=== PATIENT | male | born 1945 | race Caucasian/White ===

== ENCOUNTER 2017-11-25 06:11 | Inpatient (IN) | payer OTHER ==
[2017-11-05 11:27] VITALS: BMI 35.0
--- NOTE | 2017-11-05 12:08 | PAT Medication Instructions ---
Service Date Nov 05, 2017. Current Home Medication List Aspirin (Aspirin 81), 1 TAB PO HS Coenzyme Q10 (Ubidecarenone) (Coq-10), 1 TAB PO QAM Ibuprofen (Ibuprofen), 2 TAB PO QD PRN for Pain [michoacano-jessica], 1 CAP PO QAM Medication Instructions For Your Scheduled Surgery -Check with your surgeon for instructions for: Ibuprofen (Ibuprofen), 2 TAB PO QD PRN for Pain - Hold the following medications 2 weeks prior to surgery: Coenzyme Q10 (Ubidecarenone) (Coq-10), 1 TAB PO QAM [michoacano-jessica], 1 CAP PO QAM - Take the following medications as scheduled the night before surgery: Aspirin (Aspirin 81), 1 TAB PO HS If you have any questions please call us at [phone] or [phone] or [phone]
[2017-11-05 12:55] LABS: PTT PATIENT 26.1 SECONDS (21.0-31.0)
--- NOTE | 2017-11-05 13:07 | DIAGNOSTIC IMAGING REPORT ---
CHEST 2 VIEWS ROUTINE CLINICAL HISTORY: Preoperative evaluation. COMPARISON STUDY: Chest radiograph October 05, 2006. FINDINGS: Mild lung hyperexpansion is noted. There is no pneumothorax or pleural effusion. There is no consolidation or evidence for pulmonary edema. Lateral view demonstrates extensive anterior osteophytosis of the thoracic spine. IMPRESSION: No acute cardiopulmonary findings. Electronically signed by: Cesar Saba M.D. 11/05/2017 1:06 PM Dictated Date/Time: 11/05/2017 1:05 PM
--- NOTE | 2017-11-24 10:56 | HISTORY & PHYSICAL EXAMINATION ---
DATE OF ADMISSION: 11/25/2017 CHIEF COMPLAINT: Left hip pain. HISTORY OF PRESENT ILLNESS: The patient is a 72-year-old gentleman with known osteoarthritis about his bilateral hips, left worse than right. He has pain with activities of daily living including prolonged weightbearing and standing activities. He has difficulty with any kneeling, bending, or squatting activities. Due to ongoing pain and disability, he now desires to proceed with left total hip arthroplasty. PAST MEDICAL HISTORY: Coronary artery disease status post AR in 2009, hypercholesterolemia, obesity, hyperlipidemia. PAST SURGICAL HISTORY: Heart catheterization and stent placement, previous knee replacement. MEDICATIONS: Aspirin 81 mg daily, ibuprofen p.r.n., CoQ 10 once daily, atorvastatin 10 mg daily, lisinopril 5 mg daily, carvedilol 3.125 mg daily. ALLERGIES: No known drug allergies. SOCIAL HISTORY AND REVIEW OF SYSTEMS: Noncontributory. PHYSICAL EXAMINATION: GENERAL: Well-nourished, well-developed elderly male who appears his stated age. HEENT: Normocephalic, atraumatic, extraocular movements intact, oropharynx pink and moist. NECK: Supple without adenopathy. LUNGS: Clear to auscultation bilaterally. HEART: Regular rate and rhythm. ABDOMEN: Soft, nontender, nondistended, obese. EXTREMITIES: The upper extremities are within normal limits. Left hip demonstrates limited range of motion. There is limitation of active and passive internal/external rotation. X-RAYS: X-rays were reviewed. X-rays demonstrate severe osteoarthritis about the left hip with complete loss of the joint space. There is osteophyte formation about the acetabulum and femoral head. ASSESSMENT: Left hip degenerative joint disease. PLAN: Risks versus benefits were discussed, consent was obtained. The patient's primary care physician is Kim Davila PA-C from [place]. His associate media planner is Dr. Whelan from [place]. Will proceed with left total hip arthroplasty as indicated.
[2017-11-25] VITALS (8 sets, daily range): BP systolic 121–155; BP diastolic 63–89; PULSE 59–72; TEMP 36.5–36.9; O2SAT 95–100; Ht 177.8 cm; Wt 111.3 kg
[~2017-11-25] VITALS: Ht 177.8 cm; Wt 111.3 kg
[~2017-11-25 06:11] MED LIST: ACETAMINOPHEN 500 MG TAB PO SCH; ASPI-435 PO; CEFAZOLIN 2000MG IV PUSH 15 ML IV SCH; COEN30CA8 PO; CeleBREX 200 MG CAP PO SCH; DEXAMETHASONE 4 MG TAB PO SCH; FAMOTIDINE 20 MG TAB PO SCH; GABAPENTIN 300 MG CAP PO SCH; IBUP1CAP9 PO; LACTATED RINGER'S 1000ML 1,000 ML IV SCH; METOCLOPRAMIDE HCL 10 MG TAB PO SCH; ROPIVACAINE 5MG/ML 30 ML 150 MG, BUPIVACAINE 0.5% MPF INJ 30 ML, EpINEphrine HCL INJ 0.... INFIL SCH; [UNRECOGNIZED DRUG - CODE] PO
[2017-11-25] MEDS ORDERED: BUPIVACAINE 0.5 % 5 MG/1 ML PF 10ML VIAL ONE (06:35)
[2017-11-25] MEDS ORDERED: MIDAZOLAM HCL 1 MG/ML 2ML VIAL ONE (07:55)
[2017-11-25] MEDS ORDERED: ORTHO JOINT ANESTHETIC ONE (07:56)
[2017-11-25] MEDS ORDERED: BACITRACIN 50000 UNIT VIAL ONE (07:56)
[2017-11-25] MEDS ORDERED: POVIDONE-IODINE OP SOLN 30 ML BTL ONE (07:56)
[2017-11-25] MEDS ORDERED: FENTANYL CITRATE INJ 50 MCG/1 ML 2 ML VIAL ONE (07:57)
[2017-11-25] MEDS ORDERED: PROPOFOL IV EMULSION 10 MG/ML 20 ML VIAL ONE (07:59)
[2017-11-25] MEDS ORDERED: ONDANSETRON INJ 2 MG/ML 2 ML VIAL ONE (07:59)
[2017-11-25] MEDS ORDERED: LIDOCAINE HCL 2% 2 ML VIAL (20MG/ML) ONE (07:59)
--- NOTE | 2017-11-25 08:01 | History & Physical Bridge Note ---
H&P Re-Evaluation Bridge Note: I have examined the patient, reviewed the History & Physical and in the interval since the performance of the History & Physical I have noted the following changes of clinical significance: No changes noted
[2017-11-25] MEDS ORDERED: EpHEDrine SULFATE INJ 50 MG/ML AMP IV PRN (08:45)
[2017-11-25] MEDS ORDERED: ATROPINE SULFATE 0.1 MG/ML 5ML SYR IV PRN (08:45)
[2017-11-25] MEDS ORDERED: PROMETHAZINE HCL INJ 6.25 MG in SODIUM CHLORIDE 0.9% 50ML 50 ML IV PRN (08:45)
[2017-11-25] MEDS ORDERED: ONDANSETRON INJ 2 MG/ML 2 ML VIAL IV PRN ×2 (08:45→10:30)
[2017-11-25] MEDS ORDERED: FENTANYL CITRATE INJ 50 MCG/1 ML 2 ML VIAL IV PRN (08:45)
[2017-11-25] MEDS: TRANEXAMIC ACID INJ 1,000 MG x 2 Bags IV SCH ×4 (08:51→13:18)
[2017-11-25] MEDS ORDERED: EpHEDrine SULFATE 50MG/5ML SYR ONE (09:40)
--- NOTE | 2017-11-25 09:55 | [facility] Post Operative Brief Note ---
Immediate Operative Summary Operative Date November 25, 2017. Pre-Operative Diagnosis Degenerative Joint Disease, Left Hip Post-Operative Diagnosis Degenerative Joint Disease, Left Hip Procedure(s) Performed Left Total Hip Arthroplasty Surgeon Dr. Enrique Morales Smog Technician Surgeon(s) Wyatt Saravia PA-C Estimated Blood Loss 100 ML Findings Consistent with Post-Op Diagnosis Specimens Permanent Solution: A.) Left Femoral Head Anesthesia Type MAC Spinal Regional Complication(s) none Disposition Disposition: Recovery Room / PACU
[2017-11-25] MEDS ORDERED: OXYCODONE HCL IR 5 MG TAB (IMMEDIATE RELEASE) PO PRN (10:30)
[2017-11-25] MEDS ORDERED: MoRPHine SULFATE 4 MG/ML 1 ML CARP\\VIAL IV PRN (10:30)
[2017-11-25] MEDS ORDERED: ALUMINUM/MAGNESIUM/SIMETH (MAALOX MAX) 30 ML UDC PO PRN (10:30)
[2017-11-25] MEDS ORDERED: TAMSULOSIN HCL 0.4 MG CAP PO PRN (10:30)
[2017-11-25] MEDS ORDERED: METOCLOPRAMIDE HCL INJ 5 MG/ML 2 ML VIAL IV PRN (10:30)
[2017-11-25] MEDS ORDERED: ZOLPIDEM TARTRATE 5 MG TAB PO PRN (10:30)
[2017-11-25] MEDS ORDERED: MAGNESIUM HYDROXIDE SUSP 30 ML UDC PO PRN (10:30)
--- NOTE | 2017-11-25 10:55 | DIAGNOSTIC IMAGING REPORT ---
L PELVIS/UNILATERAL HIP 1 VIEW CLINICAL HISTORY: Postoperative evaluation. COMPARISON: None FINDINGS: Alignment of the total left hip arthroplasty is anatomic. There is no fracture or unexpected radiopaque foreign body. Surgical drain is noted. There is an acetabular screw. Severe osteoarthritis of the right hip is noted. IMPRESSION: Expected findings following total left hip arthroplasty. Electronically signed by: Cesar Saba M.D. 11/25/2017 10:53 AM Dictated Date/Time: 11/25/2017 10:53 AM
--- NOTE | 2017-11-25 11:13 | OPERATIVE REPORT ---
DATE OF OPERATION: 11/25/2017 PREOPERATIVE DIAGNOSIS: Osteoarthritis, left hip. POSTOPERATIVE DIAGNOSIS: Osteoarthritis, left hip. PROCEDURE: Left Rob total hip arthroplasty. SURGEON: Enrique Morales MD SHEET SORTER: Wyatt Saravia PA-C. ANESTHESIA: Spinal. COMPLICATIONS: None. OPERATION AND FINDINGS: PROCEDURE: Following induction of adequate spinal anesthesia, the patient was placed in right lateral decubitus position and left Moni-Langenbeck incision was made. Subcutaneous tissue was sharply dissected. Electrocautery used for hemostasis. The fascia was incised throughout the length of the wound and a tran scissor placed beneath the short external rotators. The pyriformis was tagged with #1 Vicryl. The short external rotators were divided from the posterior aspect of the femur using electrocautery. These were swept posteriorly. A T-capsulotomy incision was made and the hip was dislocated using a combination of flexion, adduction, and internal rotation. Exposure of the femoral neck with old-style Hohmann and a blunt Hohmann was carried out and a femoral rasp was utilized as a guide for making the appropriate level femoral neck cut. This bone fragment was removed and reserved on the back table. Next, attention was turned to the acetabulum where bone hook was used to retract the femur while the offset retractors were placed anterior and posteriorly. A double-angled Hohmann was placed in superior and anterior position exposing the acetabulum nicely. Acetabular labrum as well as posterior capsule elements were removed using a long knife and a long pickup. Fovea centralis was cleared of all soft tissue. Sequential reamings were carried up to a size 56 and decision was made to proceed with impaction of a size 56 trabecular metal cup. This was impacted and held using a single 35 mm bone screw. The acetabular liner was placed with 15 of elevated posterior wall in the superior and posterior position. Next, attention was turned to the femoral portion of the case where a Bovie and pickup was used to further clear short external rotators from their insertion on the femur. Box osteotome was used to gain access to the femoral canal and the T-handled rasp and a rattail rasp were used to further open and lateral the canal. Sequentially raspings were carried up to a size 5 which gave good fit and fill of the proximal femur. A trial reduction was carried out and a 132 degree femoral neck component was chosen as the size to be used. A -2.5 x 36 mm femoral head was impacted into position, +0 head was utilized. The trial reduction was stable in all degrees of rotation with no [id number] impingement. The hip was dislocated. The trial components were removed and the final femoral stem, neck, and femoral head combination were assembled on the back table and impacted into position. Hip was relocated. Range of motion checked once again successful and the wound was irrigated. The pyriformis repaired to the greater trochanter using #1 Vicryl [id number] suture. A Hemovac drain was placed and the fascia was closed using #1 Vicryl, subcutaneous tissue was closed using 0 Dexon, and skin was closed with verna. Sterile dressing of Adaptic, 4 x 4's, ABDs, and foam tape was applied. The patient tolerated the procedure well. Due to the complex nature of the procedure, the entire surgery was performed with the operational assistance of Wyatt Saravia PA-C. The human resources office assistant, under direct supervision, was involved in the actual performance of all aspects of the surgical procedure including hemostasis, tissue retraction and incision, instrument management, patient positioning, and wound closure. DISPOSITION: Recovery room stable. I attest to the content of the Intraoperative Record and any orders documented therein. Any exception s are noted below.
--- NOTE | 2017-11-25 11:41 | Anesthesiology Progress Note ---
Anesthesia Post Op Note Date & Time November 25, 2017 at 11:41 Vital Signs Pain Intensity: 0 Vital Signs Past 12 Hours Date Time Temp Pulse Resp B/P (MAP) Pulse Ox O2 Delivery O2 Flow Rate FiO2 11/25/17 11:35 59 16 116/61 97 Nasal Cannula 2 11/25/17 11:25 37.4 54 16 120/59 98 Nasal Cannula 2 11/25/17 11:15 55 16 111/63 98 Nasal Cannula 2 11/25/17 11:05 64 16 120/61 99 Nasal Cannula 2 11/25/17 10:55 62 16 114/57 99 Nasal Cannula 2 11/25/17 10:45 61 16 120/63 100 Oxymask 10 11/25/17 10:35 62 16 122/70 100 Oxymask 10 11/25/17 10:26 36.7 59 16 110/64 99 Oxymask 10 11/25/17 07:04 36.9 61 16 155/89 Room Air Notes Mental Status: alert / awake / arousable, participated in evaluation Pt Amnestic to Procedure: Yes Nausea / Vomiting: adequately controlled Pain: adequately controlled Airway Patency, RR, SpO2: stable & adequate BP & HR: stable & adequate Hydration State: stable & adequate Anesthetic Complications: no major complications apparent
--- NOTE | 2017-11-25 13:56 | Medical Consult ---
Consultation Date of Consultation: November 25, 2017. Attending Physician: Enrique Morales M.D. Reason for Consultation: Medical management History of Present Illness This is a 72 y/o male with a history of CAD, h/o NC 2009 s/p 1 stent, HLD, osteoarthritis and prediabetes who presents s/p left OSMANI with Dr. Morales on 11/25 for medical management. The patient reports feeling well postop. He denies any pain currently. He does still have some residual numbness in the LLE, but this is improving. He is eating well postop. He has not yet voided, passed gas or had a bowel movement postop. He denies any other acute complaints. The patient denies fevers, chills, sweats, chest pain, palpitations, claudication, cough, wheezing, shortness of breath, nausea, vomiting, abdominal pain, dysuria , hematuria, urinary retention, paralysis, weakness. Past Medical/Surgical History CAD H/o NC 2009 s/p 1 cardiac stent HLD Prediabetes OA Family History Colon cancer MOTHER Diabetes mellitus FATHER Myocardial infarction FATHER Stroke FATHER Social History Smoking Status: Never Smoker Smokeless Tobacco Use: No Alcohol Use: occasionally (beer) Drug Use: none Marital Status: Housing Status: lives with significant other Occupation Status: retired (still does some farming) Allergies Coded Allergies: No Known Allergies (Verified , 11/25/17) Current Inpatient Medications Current Inpatient Medications Medications (Trade) Dose Ordered Sig/Margie Route Start Time Stop Time Status Last Admin Dose Admin Lactated Ringer's 1,000 ml @ 15 mls/hr Q24H IV 11/25/17 06:00 11/26/17 05:59 11/25/17 07:21 15 MLS/HR Cefazolin Sodium 15 ml @ 3.75 mls/ min PREOP IV 11/25/17 06:00 11/25/17 18:00 11/25/17 09:02 3.75 MLS/MIN Acetaminophen (Tylenol Tab) 1,000 mg PREOP PO 11/25/17 06:00 11/25/17 18:00 11/25/17 07:18 1,000 MG Celecoxib (CeleBREX CAP) 200 mg PREOP PO 11/25/17 06:00 11/25/17 18:00 11/25/17 07:21 200 MG Dexamethasone (Decadron Tab) 8 mg PREOP PO 11/25/17 06:00 11/25/17 18:00 11/25/17 07:19 8 MG Famotidine (Pepcid Tab) 20 mg PREOP PO 11/25/17 06:00 11/25/17 18:00 11/25/17 07:19 20 MG Gabapentin (Neurontin Cap) 300 mg PREOP PO 11/25/17 06:00 11/25/17 18:00 11/25/17 07:17 300 MG Metoclopramide HCl (Reglan Tab) 10 mg PREOP PO 11/25/17 06:00 11/25/17 18:00 11/25/17 07:18 10 MG Potassium Chloride/Dextrose/ Sod Cl 1,000 ml @ 100 mls/hr Q10H IV 11/25/17 13:30 11/26/17 13:29 Ketorolac Tromethamine (Toradol Inj) 15 mg Q6H IV. 11/25/17 16:00 11/26/17 15:59 Oxycodone HCl (Roxicodone Immediate Rel Tab) 1 TABLET FOR PAIN RATING... Q4H PRN PO 11/25/17 10:30 12/09/17 10:29 Morphine Sulfate (MoRPHine SULFATE INJ) For pain rating 1-5 give 2... Q2HWA PRN IV 11/25/17 10:30 12/09/17 10:29 Acetaminophen (Tylenol Tab) 1,000 mg Q8H PO 11/25/17 14:00 12/25/17 13:59 Magnesium Hydroxide (Milk Of Magnesia Susp) 30 ml Q6H PRN PO 11/25/17 10:30 12/25/17 10:29 Docusate Sodium (coLACE CAP) 100 mg BID PO 11/25/17 21:00 12/25/17 20:59 Diphenhydramine HCl (Benadryl Cap) 25 mg Q8H PRN PO 11/25/17 10:30 12/25/17 10:29 Al Hydrox/Mg Hydrox/Simethicone (Maalox Max Susp) 15 ml Q4H PRN PO 11/25/17 10:30 12/25/17 10:29 Zolpidem Tartrate (Ambien Tab) 5 mg HSZ PRN PO 11/25/17 10:30 6/2/18 10:29 Multivitamins (Multivitamin Tab) 1 tab QAM PO 11/26/17 09:00 12/26/17 08:59 Ondansetron HCl (Zofran Inj) 4 mg Q6H PRN IV 11/25/17 10:30 12/25/17 10:29 Metoclopramide HCl (Reglan Inj) 10 mg Q6H PRN IV 11/25/17 10:30 12/25/17 10:29 Ferrous Gluconate (Ferrous Gluconate Tab) 324 mg TIDM PO 11/25/17 17:45 12/25/17 17:44 Pantoprazole Sodium (Protonix Tab) 40 mg QAM PO 11/26/17 09:00 11/29/17 09:01 Tamsulosin HCl (Flomax Cap) 0.4 mg QAM PRN PO 11/25/17 10:30 12/25/17 10:29 Cefazolin Sodium 2000 mg/Dextrose 65 ml @ 100 mls/hr Q8H IV 11/25/17 17:00 11/26/17 01:38 Dexamethasone Sodium Phosphate 10 mg/Syringe 2.5 ml @ 1 mls/min 0730 IV 11/26/17 07:30 11/26/17 07:33 Aspirin (Ecotrin Tab) 81 mg BID PO 11/25/17 21:00 12/25/17 20:59 Review of Systems See HPI for pertinent positives and negatives. All other systems reviewed and negative. Physical Exam Date Time Temp Pulse Resp B/P (MAP) Pulse Ox O2 Delivery O2 Flow Rate FiO2 11/25/17 13:15 66 16 137/74 (95) 100 11/25/17 12:35 59 16 121/63 (82) 99 11/25/17 12:05 36.6 69 18 123/70 (87) 100 Nasal Cannula 3.0 11/25/17 12:05 100 Nasal Cannula 3.0 11/25/17 11:35 37.4 59 16 116/61 97 Nasal Cannula 2 11/25/17 11:25 37.4 54 16 120/59 98 Nasal Cannula 2 11/25/17 11:15 55 16 111/63 98 Nasal Cannula 2 11/25/17 11:05 64 16 120/61 99 Nasal Cannula 2 11/25/17 10:55 62 16 114/57 99 Nasal Cannula 2 11/25/17 10:45 61 16 120/63 100 Oxymask 10 11/25/17 10:35 62 16 122/70 100 Oxymask 10 11/25/17 10:26 36.7 59 16 110/64 99 Oxymask 10 11/25/17 07:04 36.9 61 16 155/89 Room Air General appearance: +Obese. Well-developed, well-nourished, no apparent distress Head: Normocephalic, atraumatic Eyes: Normal inspection, PERRL, EOMI ENT: Normal ENT inspection, hearing grossly normal, pharynx normal Neck: Supple, no JVD, trachea midline Respiratory/Chest: Lungs clear to auscultation, normal breath sounds, no respiratory distress Cardiovascular: Regular rate & rhythm, no gallop, no murmur Abdomen/GI: +Umbilical hernia. Normal bowel sounds, non-tender, soft Extremities/Musculoskeletal: +Decreased sensation LLE. Drain at left hip. Normal inspection, no calf tenderness, no pedal edema Neurological/Psych: Alert, normal mood/affect, oriented x 3 Skin: Normal color, warm/dry, no rash Assessment & Plan 72 y/o male with a history of CAD, h/o NC 2009 s/p 1 stent, HLD, osteoarthritis and prediabetes who presents s/p left OSMANI with Dr. Morales on 11/25 for medical management. S/p left OSMANI -Pain management, DVT prophylaxis, and PT/OT as per primary team -ASA BID for DVT ppx -AVSS CAD, h/o NC s/p stent 2009, HLD--stable -Cleared by cardiology preop. Pt states that his solid waste manager wants to restart one of his "heart meds" about a month postoperatively, but he is not sure which. Not currently on any prescription meds -Continue ASA Prediabetes -HgbA1c 6.0 preop -PRP pending, if glucose elevated could add ISS Code Status -Level I, FULL RESUSCITATION STATUS Thank you for this consultation. We will continue to follow.
[2017-11-25 14:19] LABS: HEMATOCRIT 41.7 % (42-52); HEMOGLOBIN 14.1 g/dL (14.0-18.0); MEAN CELL VOLUME 93.9 fL (80-100); MEAN CORPUSCULAR HEMOGLOBIN 31.8 pg (25-34); MEAN CORPUSCULAR HGB CONC 33.8 g/dl (32-36); MEAN PLATELET VOLUME 9.4 fL (7.4-10.4); PLATELET COUNT 194 K/uL (130-400); RED CELL DISTRIBUTION WIDTH CV 13.4 % (11.5-14.5); RED CELL DISTRIBUTION WIDTH SD 46.4 fL (36.4-46.3)
[2017-11-25] MEDS: D5W AND 1/2NSS + 20MEQ KCL 1,000 ML IV SCH ×2 (14:24→22:49)
[2017-11-25] MEDS: ACETAMINOPHEN 500 MG TAB PO SCH ×2 (14:25→21:24)
[2017-11-25 14:37] LABS: CALCIUM 8.2 mg/dl (8.5-10.1); CREATININE 0.89 mg/dl (0.60-1.40); POTASSIUM 4.3 mmol/L (3.5-5.1)
[2017-11-25] MEDS: KETOROLAC TROMETHAMINE 15 MG/ML VIAL IV. SCH ×2 (16:07→21:24)
[2017-11-25] MEDS ORDERED: CEFAZOLIN IV 2,000 MG in DEXTROSE 5% 50ML 50 ML IV SCH (17:00)
[2017-11-25] MEDS: FERROUS GLUCONATE 324 MG TAB PO SCH (17:23)
[2017-11-25] MEDS: CEFAZOLIN IV 2,000 MG in SYRINGE 0 ML IV SCH (17:23)
[2017-11-25] MEDS: DOCUSATE SODIUM 100 MG CAP PO SCH (21:24)
[2017-11-25] MEDS: ASPIRIN 81 MG ECTAB PO SCH (21:24)
[2017-11-26] MEDS: CEFAZOLIN IV 2,000 MG in SYRINGE 0 ML IV SCH (00:32)
[2017-11-26 03:21] VITALS: BP 124/77; PULSE 55; TEMP 36.5; O2SAT 96
[2017-11-26] MEDS: KETOROLAC TROMETHAMINE 15 MG/ML VIAL IV. SCH ×2 (03:45→09:44)
[2017-11-26] MEDS: ACETAMINOPHEN 500 MG TAB PO SCH ×3 (05:25→21:29)
[2017-11-26 06:40] LABS: HEMATOCRIT 39.1 % (42-52); HEMOGLOBIN 13.2 g/dL (14.0-18.0); IG# 0.02 K/uL (0.00-0.02); LYMPH % 10.7 %; LYMPH ABS # 1.24 K/uL (1.2-3.4); MEAN CELL VOLUME 94.7 fL (80-100); MEAN CORPUSCULAR HGB CONC 33.8 g/dl (32-36); MEAN PLATELET VOLUME 9.5 fL (7.4-10.4); MONO % 7.1 %; MONO ABS # 0.82 K/uL (0.11-0.59); NEUT ABS # 9.48 K/uL (1.4-6.5); PLATELET COUNT 192 K/uL (130-400); RED CELL DISTRIBUTION WIDTH CV 13.6 % (11.5-14.5); RED CELL DISTRIBUTION WIDTH SD 46.9 fL (36.4-46.3); WHITE BLOOD COUNT 11.56 K/uL (4.8-10.8)
[2017-11-26 07:18] LABS: CALCIUM 8.2 mg/dl (8.5-10.1); CREATININE 0.89 mg/dl (0.60-1.40); POTASSIUM 4.5 mmol/L (3.5-5.1)
[2017-11-26] MEDS ORDERED: DEXAMETHASONE INJ 10 MG in SYRINGE 0 ML IV SCH (07:30)
[2017-11-26 07:35] VITALS: BP 152/84; PULSE 54; TEMP 36.4; O2SAT 98
--- NOTE | 2017-11-26 07:53 | Orthopedic Progress Note ---
Orthopedic Progress Note Date of Service November 26, 2017. Subjective Post OP Day: 1 Reports: feeling well Objective N/V intact, dressing C/D/I (Hemovac d/c'd), toes mobile Date Time Temp Pulse Resp B/P (MAP) Pulse Ox O2 Delivery O2 Flow Rate FiO2 11/26/17 03:21 36.5 55 16 124/77 (93) 96 Room Air 11/25/17 23:25 36.6 61 16 138/75 (96) 96 Room Air 11/25/17 20:04 Room Air 11/25/17 19:38 36.5 62 16 145/73 (97) 96 Room Air 11/25/17 15:00 36.5 68 16 133/73 (93) 96 Room Air 11/25/17 14:05 72 16 128/69 (88) 95 11/25/17 13:15 66 16 137/74 (95) 100 11/25/17 12:35 59 16 121/63 (82) 99 11/25/17 12:05 36.6 69 18 123/70 (87) 100 Nasal Cannula 3.0 11/25/17 12:05 100 Nasal Cannula 3.0 11/25/17 12:05 100 Nasal Cannula 3.0 11/25/17 11:35 37.4 59 16 116/61 97 Nasal Cannula 2 11/25/17 11:25 37.4 54 16 120/59 98 Nasal Cannula 2 11/25/17 11:15 55 16 111/63 98 Nasal Cannula 2 11/25/17 11:05 64 16 120/61 99 Nasal Cannula 2 11/25/17 10:55 62 16 114/57 99 Nasal Cannula 2 11/25/17 10:45 61 16 120/63 100 Oxymask 10 11/25/17 10:35 62 16 122/70 100 Oxymask 10 11/25/17 10:26 36.7 59 16 110/64 99 Oxymask 10 Laboratory Results 24 Hours: Test 11/25/17 14:06 11/26/17 06:20 Hematocrit 41.7 % 39.1 % Hemoglobin 14.1 g/dL 13.2 g/dL White Blood Count 11.56 K/uL Red Blood Count 4.13 M/uL Mean Corpuscular Volume 94.7 fL Mean Corpuscular Hemoglobin 32.0 pg Mean Corpuscular Hemoglobin Concent 33.8 g/dl Platelet Count 192 K/uL Mean Platelet Volume 9.5 fL Neutrophils (%) (Auto) 82.0 % Lymphocytes (%) (Auto) 10.7 % Monocytes (%) (Auto) 7.1 % Eosinophils (%) (Auto) 0.0 % Basophils (%) (Auto) 0.0 % Neutrophils # (Auto) 9.48 K/uL Lymphocytes # (Auto) 1.24 K/uL Monocytes # (Auto) 0.82 K/uL Eosinophils # (Auto) 0.00 K/uL Basophils # (Auto) 0.00 K/uL Assessment & Plan Assessment: 72 yo male stable POD #1 s/p left OSMANI Plan: 1. Med management 2. DVT prophylaxis- ASA, SCDs 3. PT/OT 4. D/C planning- home w/ HH
--- NOTE | 2017-11-26 07:56 | Discharge Instructions ---
Discharge Instructions Date of Service November 26, 2017. Admission Reason for Admission: Left Hip Osteoarthritis Discharge Discharge Diagnosis / Problem: Left hip arthritis Discharge Goals Goal(s): Decrease discomfort, Improve function Activity Recommendations Activity Limitations: as noted below Weightbearing Status: Left weightbearing (as tolerated) . Instructions / Follow-Up Instructions / Follow-Up ACTIVITY RECOMMENDATIONS: SELF CARE INSTRUCTIONS AFTER TOTAL HIP REPLACEMENT Until the incision and soft tissues around your hip have healed, there is a possibility that the hip prosthesis could dislocate. A. Observe the following precautions to prevent dislocation: 1. Don't bend your hip greater than 90 degrees. 2. Avoid crossing your legs or ankles while standing or lying. 3. Sit with your feet placed 6 inches apart. 4. When sitting, keep your knees below your hips. Sit on a firm surface, avoid deep, soft chairs and couches. Use an elevated toilet seat in the bathroom. 5. Don't bend over at the waist. Use a long handled shoehorn and a sock aid to help you put on your shoes and socks. A fabric inspector can help you corn picker objects that are too high or too low to reach. 6. Keep car riding to a minimum for at least one month after surgery. B. Your balance may be shaky for a while. Use crutches or a walker until directed by your doctor. C. Use hand rails when walking on stairs. D. Wear low heeled shoes with non-slip soles. E. Be sure that your floors are free of things that could trip you - throw rugs , electrical cords, small objects. Avoid wet and waxed floors, especially with crutches and canes. F. Try to walk several times a day with rest periods between. G. Continue with all the exercises taught to you in the hospital. Again, make walking a part of your daily routine. SPECIAL CARE INSTRUCTIONS: VERY IMPORTANT TO READ AND REVIEW A. You may still be at risk for phlebitis and blood clots. 1. Wear surgical stockings (MELVIN hose) for 2 weeks after surgery to improve circulation and reduce swelling. 2. Take Aspirin 81mg twice daily for 4 weeks or as directed by your doctor. This is your blood thinner. 3. High risk patients may be prescribed a stronger blood thinner if necessary. 4. If you are on Coumadin normally, your family doctor/roll form operator should monitor your blood work. Expect a phone call the day of or the day after bloodwork is drawn to adjust your dosage. B. You must take antibiotics before having dental work, bladder, bowel and other surgery. Your doctor will provide you with a permanent card to carry describing precautions. C. Call [facility] if you have a fever, redness or swelling around the incision, cloudy drainage from incision, or sudden increase in pain in your hip, not relieved by your regular pain medication. D. Please call the office at if you have any concerns or questions about your operation or recovery. * YOU MAY SHOWER, NO TUB BATHS UNTIL CLEARED BY YOUR DOCTOR. * WEAR MELVIN HOSE 20 HOURS PER DAY FOR 2 WEEKS. * YOU SHOULD USE A WALKER OR CRUTCHES FOR 2-4 WEEKS. THIS WILL HELP PREVENT STRAIN ON YOUR HIP MUSCLE AND ALLOW IT TO HEAL PROPERLY. YOU MAY WEAN TO A CANE TOLERATED. * MOST PATIENTS WILL HAVE HOME NURSING FOR THERAPY. IF YOU DECIDE TO DO OUTPATIENT PHYSICAL THERAPY, PLEASE SCHEDULE THIS 3 TIMES PER WEEK. Silverlon- This is a large adhesive bandage that contains silver ions. This helps your incision heal by fighting off bacteria and protecting it from the outside environment. You are permitted to shower with this dressing. This will remain on your incision for 7 days and then should be removed. Some visible blood or drainage through the dressing window is normal. If there is significant drainage or leaking noted before the 7 days notify your doctor's office immediately. Once removed, keep incision clean and dry. If there is any drainage or redness noted, please call your surgeon. Zip Skin Closure You have a Zipline Closure System. As noted below, this keeps your incision closed. You may shower with Zipline in place. Keep the wound covered with a dressing as it has the potential to snag on your clothing. The Zipline will remain on for a total of 2 weeks. Do not remove it! You will be given instructions by nursing staff at the time of discharge to care for your Zip Closure System. This devices uses plastic straps to keep your incision closed and protected throughout your recovery. If you have any questions please refer to these instructions first. FOLLOW UP VISIT: If appointment is not already scheduled: Please call [facility] to make a follow-up appointment for 2 weeks after your surgery at . Current Hospital Diet Patient's current hospital diet: Regular Diet Discharge Diet Recommended Diet: Regular Diet Procedures Procedures Performed: Left Total Hip Arthroplasty Pending Studies Studies pending at discharge: no Laboratory Results Hemoglobin A1c Test 11/05/17 11:08 Range/Units Estimated Average Glucose 126 mg/dl Hemoglobin A1c 6.0 H 4.5-5.6 % Medical Emergencies . Who to Call and When: Medical Emergencies: If at any time you feel your situation is an emergency, please call 911 immediately. . Non-Emergent Contact Non-Emergency issues call your: Surgeon Call Non-Emergent contact if: temperature is above 101.5, your pain is not controlled, wound has increased drainage, wound has increased redness . "Provider Documentation" section prepared by Wyatt Saravia PA-C. . [facility] Drug Monitoring Program Search Results: patient reviewed within database, no issues identified
[2017-11-26 08:00] VITALS: O2SAT 98
--- NOTE | 2017-11-26 08:01 | Anesthesiology Progress Note ---
Anesthesia Post Op Note Date & Time November 26, 2017 at 08:01 Vital Signs Vital Signs Past 12 Hours Date Time Temp Pulse Resp B/P (MAP) Pulse Ox O2 Delivery O2 Flow Rate FiO2 11/26/17 03:21 36.5 55 16 124/77 (93) 96 Room Air 11/25/17 23:25 36.6 61 16 138/75 (96) 96 Room Air 11/25/17 20:04 Room Air Notes Mental Status: alert / awake / arousable, participated in evaluation Pt Amnestic to Procedure: Yes Nausea / Vomiting: adequately controlled Pain: adequately controlled Airway Patency, RR, SpO2: stable & adequate BP & HR: stable & adequate Hydration State: stable & adequate Neuraxial Anesthesia: was administered, sensory block resolved Anesthetic Complications: no major complications apparent
[2017-11-26] MEDS: FERROUS GLUCONATE 324 MG TAB PO SCH ×3 (08:37→18:16)
[2017-11-26] MEDS: ASPIRIN 81 MG ECTAB PO SCH ×2 (08:38→21:29)
[2017-11-26] MEDS: PANTOprazole SOD 40 MG TAB PO SCH (08:38)
[2017-11-26] MEDS: MULTIVITAMIN TAB PO SCH (08:38)
[2017-11-26] MEDS: DOCUSATE SODIUM 100 MG CAP PO SCH ×2 (08:38→21:29)
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
[2017-11-26 14:00] VITALS: BP 134/74; PULSE 64; TEMP 36.4; O2SAT 98
[2017-11-26 15:04] VITALS: BP 166/74; PULSE 61; TEMP 36.5; O2SAT 99
[2017-11-26] MEDS ORDERED: NURSING VERBAL MED ORDER ONE (17:15)
[2017-11-26] MEDS ORDERED: TRAMADOL HCL 50 MG TAB PO PRN (17:15)
[2017-11-26 23:09] VITALS: BP 154/77; PULSE 57; TEMP 36.7; O2SAT 98
[2017-11-27] MEDS: ACETAMINOPHEN 500 MG TAB PO SCH (06:04)
[2017-11-27 06:18] VITALS: BP 169/73; PULSE 67; TEMP 36.4; O2SAT 97
[2017-11-27] MEDS: ASPIRIN 81 MG ECTAB PO SCH (07:29)
[2017-11-27] MEDS: DOCUSATE SODIUM 100 MG CAP PO SCH (07:29)
[2017-11-27] MEDS: FERROUS GLUCONATE 324 MG TAB PO SCH (07:29)
[2017-11-27] MEDS: MULTIVITAMIN TAB PO SCH (07:30)
[2017-11-27] MEDS: PANTOprazole SOD 40 MG TAB PO SCH (07:30)
[2017-11-27 08:07] LABS: HEMATOCRIT 40.6 % (42-52); HEMOGLOBIN 13.5 g/dL (14.0-18.0); MEAN CELL VOLUME 95.3 fL (80-100); MEAN CORPUSCULAR HEMOGLOBIN 31.7 pg (25-34); MEAN CORPUSCULAR HGB CONC 33.3 g/dl (32-36); MEAN PLATELET VOLUME 9.6 fL (7.4-10.4); PLATELET COUNT 200 K/uL (130-400); RED CELL DISTRIBUTION WIDTH CV 13.9 % (11.5-14.5); RED CELL DISTRIBUTION WIDTH SD 48.3 fL (36.4-46.3); WHITE BLOOD COUNT 9.35 K/uL (4.8-10.8)
--- NOTE | 2017-11-27 08:07 | Orthopedic Progress Note ---
Orthopedic Progress Note Date of Service November 27, 2017. Subjective Post OP Day: 2 Reports: feeling well, Denies: chest pain, SOB, nausea / vomiting, light headedness, calf pain Objective calves soft nontender, N/V intact, hip located, capillary refill less than 2 sec., dressing C/D/I (ZIPLINE), A&O x3, toes mobile Date Time Temp Pulse Resp B/P (MAP) Pulse Ox O2 Delivery O2 Flow Rate FiO2 11/27/17 06:18 36.4 67 16 169/73 (105) 97 Room Air 11/26/17 23:09 36.7 57 16 154/77 (102) 98 Room Air 11/26/17 20:30 Room Air 11/26/17 15:04 36.5 61 20 166/74 (104) 99 Room Air 11/26/17 14:00 36.4 64 16 134/74 (94) 98 Room Air Laboratory Results 24 Hours: Test 11/27/17 07:44 Assessment & Plan Assessment: 72 yo male stable POD #2 s/p left OSMANI Plan: 1. Med management 2. DVT prophylaxis- ASA, SCDs 3. PT/OT 4. D/C planning- home w/ HH. DC HOME TODAY
[2017-11-27] MEDS ORDERED: RXC5 PO (08:15)
[2017-11-27] MEDS ORDERED: ASPI-320 PO (08:15)
[2017-11-27] MEDS ORDERED: ONDA-170 PO (08:15)
[2017-11-27] MEDS ORDERED: ACET-24 PO (08:15)
[2017-11-27 08:43] LABS: CALCIUM 8.3 mg/dl (8.5-10.1); CREATININE 0.76 mg/dl (0.60-1.40); POTASSIUM 4.1 mmol/L (3.5-5.1)
[2017-11-27 09:47] VITALS: BP 169/73; PULSE 67; TEMP 36.4; O2SAT 97
== END 2017-11-27 11:27 | disposition home health service (06) | DRG 470 ==
LOC: C.ACU 06:11 → C.3E 07:41 → ENRESERV 10:55
PROC: 0SRB0JZ Replacement of Left Hip Joint with Synthetic Substitute, Open Approach (ICD-10-PCS; principal; 2017-11-25 09:00)
DX: M16.0 Bilateral primary osteoarthritis of hip (principal); R03.0 Elevated blood-pressure reading, without diagnosis of hypertension; K59.00 Constipation, unspecified; I25.10 Atherosclerotic heart disease of native coronary artery without angina pectoris; R73.03 Prediabetes; E78.00 Pure hypercholesterolemia, unspecified; E78.5 Hyperlipidemia, unspecified; I25.2 Old myocardial infarction; E66.9 Obesity, unspecified; Z68.35 Body mass index [BMI] 35.0-35.9, adult; Z95.5 Presence of coronary angioplasty implant and graft; Z96.653 Presence of artificial knee joint, bilateral; Z92.84 Personal history of unintended awareness under general anesthesia; Z79.82 Long term (current) use of aspirin; Z79.899 Other long term (current) drug therapy